=== PATIENT | female | born 1960 | race Caucasian/White ===

== ENCOUNTER → 2019-04-11 15:49 | Outpatient (CLI) | payer BC, SELFPAY ==
--- NOTE | 2019-04-11 | DI.RAD.S_ITS ---
PROCEDURE: XR CERVICAL SPINE 4V OR 5V INDICATIONS: Hand Paresthesia Rt side TECHNIQUE: 5 views of the cervical spine acquired. COMPARISON: None. FINDINGS: Bones: No fractures or dislocations to the T1 level. Oblique images demonstrate no bony foraminal stenoses. There is moderately severe C4-5 and C5-6 degenerative disc disease with anterior and posterior projecting osteophytes and also facet osteoarthritis to the degree that foraminal stenosis at these levels is moderately severe. This is symmetric, and no subluxation is associated. Soft tissues: No prevertebral soft tissue swelling. IMPRESSION: Need degenerative disc disease is moderately severe at C4-5 and C5-6 with associated foraminal stenosis at these 2 levels symmetric bilaterally and likely producing impingement on the course of the C5 and C6 nerve roots, respectively, bilaterally. Dictated by: Jorje Medina M.D. on 04/11/2019 at 16:49 Approved by: Jorje Medina M.D. on 04/11/2019 at 16:51
== END ==
PROVIDERS: PCP Family Medicine; Visit Provider Chiropractor
DX: R20.2 Paresthesia of skin (principal); M50.321 Other cervical disc degeneration at C4-C5 level; M47.812 Spondylosis without myelopathy or radiculopathy, cervical region; M48.02 Spinal stenosis, cervical region
CPT/HCPCS: 72050

== ENCOUNTER → 2019-04-14 10:26 | Outpatient (CLI) | payer BC, SELFPAY ==
--- NOTE | 2019-04-14 | DI.RAD.S_ITS ---
PROCEDURE: XR LUMBAR SPINE 2-3V INDICATIONS: Sciatica, left side TECHNIQUE: 3 views of the lumbar spine were acquired. COMPARISON: None. FINDINGS: Bones: 5 [id number] vertebrae are present. No vertebral body compression fractures. No suspicious bony lesions. Mild dextrocurvature. There is grade 1 anterolisthesis at L4-L5. Mild degenerative disc disease at L1-L2, L2-L3, L3-L4 and L4-L5. There is moderate facet arthropathy at L4-L5 and L5-S1. Soft tissues: Overlying bowel gas pattern is normal. No suspicious soft tissue calcifications. IMPRESSION: Degenerative disc and facet disease in lumbar spine. Dictated by: Precious Palomino M.D. on 04/14/2019 at 17:31 Approved by: Precious Palomino M.D. on 04/14/2019 at 17:33
== END ==
PROVIDERS: PCP Family Medicine; Visit Provider Chiropractor
DX: M51.16 Intervertebral disc disorders with radiculopathy, lumbar region (principal); M47.26 Other spondylosis with radiculopathy, lumbar region; M47.27 Other spondylosis with radiculopathy, lumbosacral region
CPT/HCPCS: 72100

== ENCOUNTER → 2019-05-19 10:00 | Outpatient (CLI) | payer BC, SELFPAY ==
--- NOTE | 2019-05-19 | DI.RAD.S_ITS ---
PROCEDURE: XR FOOT LT MIN 3V INDICATIONS: LT FOOT PAIN TECHNIQUE: 3 views of the foot were acquired. COMPARISON: None. FINDINGS: Bones: No fractures or dislocations. No suspicious bony lesions. Posterior and plantar calcaneal spurring. Os peroneum. Mild first MTP joint degeneration. Incidental os navicular Soft tissues: No tibiotalar joint effusion. Achilles tendon appears normal. IMPRESSION: Prominent plantar and posterior calcaneal spurring. Dictated by: Obie Agrawal M.D. on 05/19/2019 at 11:50 Approved by: Obie Agrawal M.D. on 05/19/2019 at 12:00
== END ==
PROVIDERS: Family Provider Family Medicine; PCP Family Medicine; Visit Provider Chiropractor
DX: M79.672 Pain in left foot (principal); M77.32 Calcaneal spur, left foot
CPT/HCPCS: 73630

== ENCOUNTER → 2022-10-30 10:26 | Outpatient (CLI) | payer BC, SELFPAY ==
[2022-10-30 11:29] LABS: Cholesterol 298 mg/dL (140-199); HDL Cholesterol 49 mg/dL (40-60); LDL Cholesterol Calculated 209 mg/dL (<100); Triglycerides 199 mg/dL (35-150); VLDL Cholesterol Calculated 40 mg/dL (2-30)
== END ==
PROVIDERS: Family Provider Family Medicine; PCP Family Medicine; Referring Provider Family Medicine; Visit Provider Family Medicine
DX: E78.5 Hyperlipidemia, unspecified (principal)
CPT/HCPCS: 36415; 80061

== ENCOUNTER → 2022-11-07 11:12 | Outpatient (CLI) | payer BC, SELFPAY ==
[2022-11-10 14:08] LABS: Interpretation Negative (Negative)
== END ==
PROVIDERS: Family Provider Family Medicine; PCP Family Medicine; Referring Provider Family Medicine; Visit Provider Family Medicine
DX: B99.9 Unspecified infectious disease (principal); B96.81 Helicobacter pylori [H. pylori] as the cause of diseases classified elsewhere
CPT/HCPCS: 83013

== ENCOUNTER → 2025-03-17 11:02 | Outpatient (CLI) | payer MEDICARE, BC, SELFPAY ==
--- NOTE | 2025-03-17 11:07 | DI.RAD.S_ITS ---
PROCEDURE: XR CLAVICLE BI INDICATIONS: Evaluate for FRACTURE OF CLAVICLE TECHNIQUE: 2 views of the right clavicle and 2 views of the left clavicle were acquired. COMPARISON: None. FINDINGS: Bones: No fractures or dislocations. No suspicious bony lesions. 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 Soft tissues: No suspicious soft tissue calcifications. IMPRESSION: No acute clavicular fracture as clinically queried. 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 Approved by: Nya Sunshine M.D.,Ph.D. on 03/21/2025 at 12:29
== END ==
PROVIDERS: Family Provider Family Medicine; PCP Family Medicine; Referring Provider Chiropractor; Visit Provider Chiropractor
DX: M19.011 Primary osteoarthritis, right shoulder (principal); M19.012 Primary osteoarthritis, left shoulder
CPT/HCPCS: 73000